=== PATIENT | male | born 1945 | race Caucasian/White ===

== ENCOUNTER 2020-09-21 17:21 | Inpatient (IN) | payer MEDICARE, OTHER ==
[~2020-09-21] VITALS: Ht 170.2 cm; Wt 101.2 kg
[~2020-09-21 17:21] MED LIST: lisinopril PO
[2020-09-21 17:54] LABS: ABG BASE EXCESS -1.2 mmol/L (-2.0-3.0); ABG HCO3 21.5 mmol/L (21.0-28.0); ABG OXYGEN SATURATION 94.2 % (95.0-99.0); ABG PCO2 31 mmHg (35-48)
[2020-09-21 18:20] LABS: BASOPHILS % (AUTO) 0.4 % (0.0-5.0); EOSINOPHILS % (AUTO) 0.1 % (0.0-8.0); HEMATOCRIT 49.6 % (42-54); LYMPHOCYTES % (AUTO) 13.7 % (21.0-51.0); MEAN CORPUSCULAR HEMOGLOBIN 32.6 pg (27.0-33.0); MEAN CORPUSCULAR HGB CONC 34.3 g/dL (32.0-36.0); MONOCYTES % (AUTO) 13.5 % (3.0-13.0); NEUTROPHILS % (AUTO) 71.9 % (40.0-77.0); PLATELET COUNT (AUTO) 292 K/uL (130-400); RED BLOOD CELL COUNT(AUTO) 5.22 MIL/uL (4.50-6.20); WHITE BLOOD COUNT (AUTO) 6.8 K/uL (4.8-10.8)
[2020-09-21] MEDS ORDERED: ALBUTEROL INHALER 90MCG/INH IH ONE (18:25)
[2020-09-21] MEDS ORDERED: ASPIRIN 325 MG TABLET ONE (18:26)
[2020-09-21] MEDS ORDERED: CEFTRIAXONE 1G VIAL ONE (18:26)
[2020-09-21] MEDS ORDERED: DEXAMETHASONE SOD PHOSPHATE 10MG/ML 1ML VIAL ONE (18:26)
[2020-09-21] MEDS ORDERED: AZITHROMYCIN 250 MG TABLET PO ONE (18:27)
[2020-09-21 18:33] LABS: INR 1.05 (0.85-1.15); PROTHROMBIN TIME 11.2 SEC (9.6-11.6)
[2020-09-21 18:35] LABS: PARTIAL THROMBOPLASTIN TIME 32.4 SEC (26.3-35.5)
[2020-09-21 18:42] LABS: POTASSIUM 4.2 mmol/L (3.5-5.1)
[2020-09-21 18:46] LABS: ALBUMIN 3.4 g/dL (3.5-5.0); BILIRUBIN,TOTAL 0.5 mg/dL (0.2-1.0); TOTAL PROTEIN, SERUM 7.2 g/dL (6.0-8.3)
[2020-09-21 18:48] LABS: B-TYPE NATRIURETIC PEPTIDE 7 pg/mL (0-100)
[2020-09-21] MEDS ORDERED: ERGOCALCIFEROL (VITAMIN D2) 50,000 UNIT CAPSULE PO ONE (20:15)
[2020-09-21] MEDS ORDERED: LACTULOSE 20 GM/30 ML UDCUP PO PRN (20:15)
[2020-09-21] MEDS ORDERED: ALBUTEROL INHALER 90MCG/INH IH PRN (20:15)
[2020-09-21] MEDS: DEXAMETHASONE SOD PHOSPHATE 4 MG/ML 1ML VIAL IVP SCH (20:15)
[2020-09-21] MEDS ORDERED: ONDANSETRON 4MG INJ IV PRN (20:15)
[2020-09-21] MEDS ORDERED: ACETAMINOPHEN 325 MG TAB PO PRN (20:15)
[2020-09-21] MEDS: AZITHROMYCIN 500MG+NS 250ML 250 ML IV SCH (20:15)
[2020-09-21] MEDS: CEFTRIAXONE 1G VIAL IVP SCH (20:15)
[2020-09-21] MEDS ORDERED: GUAIFENESIN-CODEINE 5 ML SYRUP PO PRN (20:30)
[2020-09-21] MEDS ORDERED: DEXTROSE 50%-WATER 50 ML DISP.SYRIN IV PRN (20:30)
[2020-09-21] MEDS ORDERED: GLUCAGON 1MG KIT 1 MG ML IM PRN (20:30)
[2020-09-21] MEDS: FAMOTIDINE 20MG TAB PO SCH (21:00)
[2020-09-21] MEDS: INSULIN HUMULIN R 100 UNIT/ML 3ML SQ SCH (21:00)
[2020-09-21 21:25] LABS: CRP QUANTITATIVE 105.8 mg/L (0.00-9.0)
[2020-09-21] MEDS ORDERED: ERGOCALCIFEROL (VITAMIN D2) 50,000 UNIT CAPSULE ONE (23:16)
[2020-09-21] MEDS ORDERED: FAMOTIDINE 20MG TAB ONE (23:16)
[2020-09-22] MEDS ORDERED: IOHEXOL 350 MG/ML 100ML INFUS..BTL IV ONE (00:25)
[2020-09-22 05:41] LABS: BASOPHILS % (AUTO) 0.2 % (0.0-5.0); HEMATOCRIT 50.4 % (42-54); LYMPHOCYTES % (AUTO) 16.7 % (21.0-51.0); MEAN CORPUSCULAR HEMOGLOBIN 32.1 pg (27.0-33.0); MEAN CORPUSCULAR HGB CONC 33.5 g/dL (32.0-36.0); MEAN CORPUSCULAR VOLUME 95.6 fL (79-99); NEUTROPHILS % (AUTO) 73.9 % (40.0-77.0); PLATELET COUNT (AUTO) 324 K/uL (130-400); RED BLOOD CELL COUNT(AUTO) 5.27 MIL/uL (4.50-6.20); RED CELL DISTRIBUTION WIDTH 13.1 % (11.0-15.5); WHITE BLOOD COUNT (AUTO) 4.7 K/uL (4.8-10.8)
[2020-09-22 05:46] LABS: POTASSIUM 4.9 mmol/L (3.5-5.1)
[2020-09-22] MEDS: INSULIN HUMULIN R 100 UNIT/ML 3ML SQ SCH ×4 (07:30→21:00)
[2020-09-22] MEDS ORDERED: FAMOTIDINE 20MG TAB ONE ×2 (08:08→20:56)
[2020-09-22] MEDS ORDERED: ASCORBIC ACID 500 MG TAB ONE (08:08)
[2020-09-22] MEDS ORDERED: DEXAMETHASONE SOD PHOSPHATE 10MG/ML 1ML VIAL ONE (08:08)
[2020-09-22] MEDS ORDERED: ENOXAPARIN SODIUM 40 MG/0.4 ML SYRINGE SQ ONE (08:09)
[2020-09-22] MEDS ORDERED: ZINC SULFATE 220 CAPSULE ONE (08:09)
[2020-09-22] MEDS: CEFTRIAXONE 1G VIAL IVP SCH ×2 (08:15→20:15)
[2020-09-22] MEDS: ZINC SULFATE 220 CAPSULE PO SCH (09:00)
[2020-09-22] MEDS: FAMOTIDINE 20MG TAB PO SCH ×2 (09:00→21:00)
[2020-09-22] MEDS ORDERED: ENOXAPARIN SODIUM 40 MG/0.4 ML SYRINGE SQ SCH (09:00)
[2020-09-22] MEDS: ASCORBIC ACID 500 MG TAB PO SCH (09:00)
[2020-09-22] MEDS ORDERED: GUAIFENESIN-CODEINE 5 ML SYRUP ONE (12:38)
[2020-09-22] MEDS ORDERED: AZITHROMYCIN 500MG+NS 250ML 250 ML IV ONE (17:05)
[2020-09-22] MEDS ORDERED: CEFTRIAXONE 1G VIAL ONE (17:05)
[2020-09-22] MEDS ORDERED: 0.9%NACL 50ML 50 ML IV ONE (17:06)
[2020-09-22] MEDS: AZITHROMYCIN 500MG+NS 250ML 250 ML IV SCH (20:15)
[2020-09-22] MEDS: DEXAMETHASONE SOD PHOSPHATE 4 MG/ML 1ML VIAL IVP SCH (20:15)
[2020-09-22] MEDS ORDERED: ACETAMINOPHEN 325 MG TAB ONE (22:26)
[2020-09-23 05:21] LABS: BASOPHILS % (AUTO) 0.1 % (0.0-5.0); HEMATOCRIT 50.3 % (42-54); LYMPHOCYTES % (AUTO) 8.8 % (21.0-51.0); MEAN CORPUSCULAR HGB CONC 33.4 g/dL (32.0-36.0); MEAN CORPUSCULAR VOLUME 95.8 fL (79-99); MONOCYTES % (AUTO) 8.7 % (3.0-13.0); NEUTROPHILS % (AUTO) 81.8 % (40.0-77.0); PLATELET COUNT (AUTO) 349 K/uL (130-400); RED BLOOD CELL COUNT(AUTO) 5.25 MIL/uL (4.50-6.20); WHITE BLOOD COUNT (AUTO) 14.3 K/uL (4.8-10.8)
[2020-09-23 05:47] LABS: ALBUMIN 2.9 g/dL (3.5-5.0); BILIRUBIN,TOTAL 0.4 mg/dL (0.2-1.0); CREATININE 0.9 mg/dL (0.5-1.5); POTASSIUM 4.1 mmol/L (3.5-5.1); TOTAL PROTEIN, SERUM 7.2 g/dL (6.0-8.3)
[2020-09-23] MEDS: INSULIN HUMULIN R 100 UNIT/ML 3ML SQ SCH ×4 (07:30→21:00)
[2020-09-23] MEDS: CEFTRIAXONE 1G VIAL IVP SCH ×2 (08:15→20:15)
[2020-09-23] MEDS ORDERED: ASCORBIC ACID 500 MG TAB ONE (08:49)
[2020-09-23] MEDS ORDERED: FAMOTIDINE 20MG TAB ONE ×2 (08:50→20:16)
[2020-09-23] MEDS ORDERED: ZINC SULFATE 220 CAPSULE ONE (08:50)
[2020-09-23] MEDS ORDERED: ENOXAPARIN SODIUM 40 MG/0.4 ML SYRINGE SQ ONE ×2 (08:51→20:16)
[2020-09-23] MEDS ORDERED: ACETAMINOPHEN 325 MG TAB ONE ×2 (08:51→18:21)
[2020-09-23] MEDS ORDERED: CEFTRIAXONE 1G VIAL ONE ×2 (08:52→20:17)
[2020-09-23] MEDS: FAMOTIDINE 20MG TAB PO SCH ×2 (09:00→21:00)
[2020-09-23] MEDS: ZINC SULFATE 220 CAPSULE PO SCH (09:00)
[2020-09-23] MEDS: ASCORBIC ACID 500 MG TAB PO SCH (09:00)
[2020-09-23] MEDS ORDERED: ONDANSETRON 4MG INJ ONE (18:03)
[2020-09-23] MEDS ORDERED: PHARMACY COMMUNICATION**REMDESIVIR ORDER MISC SCH (18:15)
[2020-09-23] MEDS ORDERED: GUAIFENESIN-CODEINE 5 ML SYRUP ONE (19:24)
[2020-09-23] MEDS ORDERED: AZITHROMYCIN 500MG+NS 250ML 250 ML IV ONE (20:13)
[2020-09-23] MEDS: AZITHROMYCIN 500MG+NS 250ML 250 ML IV SCH (20:15)
[2020-09-23] MEDS ORDERED: DEXAMETHASONE SOD PHOSPHATE 10MG/ML 1ML VIAL ONE (20:15)
[2020-09-23] MEDS: DEXAMETHASONE SOD PHOSPHATE 4 MG/ML 1ML VIAL IVP SCH (20:15)
[2020-09-23] MEDS: ENOXAPARIN SODIUM 60 MG/0.6 ML SQ SCH (21:00)
[2020-09-23 21:44] VITALS: BP 138/67
[2020-09-23] MEDS ORDERED: 0.9% NACL 250ML 250 ML IV ONE (23:34)
[2020-09-24] VITALS (7 sets, daily range): BP systolic 109–149; BP diastolic 53–81
[2020-09-24] MEDS ORDERED: simvastatin (01:33)
[2020-09-24] MEDS ORDERED: metformin (01:33)
[2020-09-24 04:53] LABS: BASOPHILS % (AUTO) 0.2 % (0.0-5.0); HEMATOCRIT 49.7 % (42-54); LYMPHOCYTES % (AUTO) 5.7 % (21.0-51.0); MEAN CORPUSCULAR HEMOGLOBIN 31.7 pg (27.0-33.0); MEAN CORPUSCULAR HGB CONC 33.6 g/dL (32.0-36.0); MEAN CORPUSCULAR VOLUME 94.3 fL (79-99); MONOCYTES % (AUTO) 6.3 % (3.0-13.0); NEUTROPHILS % (AUTO) 86.7 % (40.0-77.0); PLATELET COUNT (AUTO) 349 K/uL (130-400); RED BLOOD CELL COUNT(AUTO) 5.27 MIL/uL (4.50-6.20); RED CELL DISTRIBUTION WIDTH 13.1 % (11.0-15.5); WHITE BLOOD COUNT (AUTO) 13.1 K/uL (4.8-10.8)
[2020-09-24 05:21] LABS: BILIRUBIN,TOTAL 0.8 mg/dL (0.2-1.0); CREATININE 0.9 mg/dL (0.5-1.5); CRP QUANTITATIVE 144.4 mg/L (0.00-9.0); POTASSIUM 4.3 mmol/L (3.5-5.1); TOTAL PROTEIN, SERUM 7.7 g/dL (6.0-8.3)
[2020-09-24] MEDS: INSULIN HUMULIN R 100 UNIT/ML 3ML SQ SCH ×4 (07:30→21:00)
[2020-09-24] MEDS: CEFTRIAXONE 1G VIAL IVP SCH ×2 (08:17→22:21)
[2020-09-24] MEDS: FAMOTIDINE 20MG TAB PO SCH ×2 (08:17→22:19)
[2020-09-24] MEDS: ASCORBIC ACID 500 MG TAB PO SCH (08:18)
[2020-09-24] MEDS: ACETAMINOPHEN 325 MG TAB PO PRN ×3 (08:18→22:24)
[2020-09-24] MEDS: ZINC SULFATE 220 CAPSULE PO SCH (08:19)
[2020-09-24] MEDS: ENOXAPARIN SODIUM 60 MG/0.6 ML SQ SCH ×2 (08:25→22:20)
[2020-09-24] MEDS ORDERED: PHARMACY COMMUNICATION MISC SCH (11:45)
[2020-09-24] MEDS ORDERED: COMPOUND IV REFRIGERATED 1 EACH IVSOLN MISC PRN (15:00)
[2020-09-24] MEDS ORDERED: REMDESIVIR (EUA) 520 200 MG in 0.9% NACL 250ML 250 ML IV ONE (15:00)
[2020-09-24] MEDS: DEXAMETHASONE SOD PHOSPHATE 4 MG/ML 1ML VIAL IVP SCH (22:19)
[2020-09-24] MEDS: AZITHROMYCIN 500MG+NS 250ML 250 ML IV SCH (22:21)
[2020-09-25 03:43] VITALS: BP 113/63
[2020-09-25 05:32] LABS: BASOPHILS % (AUTO) 0.2 % (0.0-5.0); HEMATOCRIT 49.3 % (42-54); LYMPHOCYTES % (AUTO) 3.5 % (21.0-51.0); MEAN CORPUSCULAR HEMOGLOBIN 32.2 pg (27.0-33.0); MEAN CORPUSCULAR HGB CONC 33.7 g/dL (32.0-36.0); MEAN CORPUSCULAR VOLUME 95.5 fL (79-99); MONOCYTES % (AUTO) 3.6 % (3.0-13.0); NEUTROPHILS % (AUTO) 91.8 % (40.0-77.0); PLATELET COUNT (AUTO) 277 K/uL (130-400); RED BLOOD CELL COUNT(AUTO) 5.16 MIL/uL (4.50-6.20); RED CELL DISTRIBUTION WIDTH 13.2 % (11.0-15.5)
[2020-09-25 05:51] LABS: ALBUMIN 2.6 g/dL (3.5-5.0); BILIRUBIN,DIRECT 0.3 mg/dL (0.0-0.3); BILIRUBIN,TOTAL 0.9 mg/dL (0.2-1.0); POTASSIUM 4.6 mmol/L (3.5-5.1); TOTAL PROTEIN, SERUM 7.2 g/dL (6.0-8.3)
[2020-09-25] MEDS: INSULIN HUMULIN R 100 UNIT/ML 3ML SQ SCH ×4 (06:01→21:00)
[2020-09-25 06:02] LABS: CRP QUANTITATIVE 379.5 mg/L (0.00-9.0)
[2020-09-25] MEDS: PHARMACY COMMUNICATION MISC SCH (07:40)
[2020-09-25 08:43] VITALS: BP 111/59
[2020-09-25] MEDS: ENOXAPARIN SODIUM 60 MG/0.6 ML SQ SCH ×2 (08:50→22:08)
[2020-09-25] MEDS: ZINC SULFATE 220 CAPSULE PO SCH (08:50)
[2020-09-25] MEDS: ASCORBIC ACID 500 MG TAB PO SCH (08:50)
[2020-09-25] MEDS: CEFTRIAXONE 1G VIAL IVP SCH (08:51)
[2020-09-25] MEDS: FAMOTIDINE 20MG TAB PO SCH ×2 (08:51→22:07)
[2020-09-25 12:00] VITALS: BP 129/85
[2020-09-25] MEDS: REMDESIVIR (EUA) 520 100 MG in 0.9% NACL 250ML 250 ML IV SCH (15:06)
[2020-09-25 16:00] VITALS: BP 122/69
[2020-09-25 20:41] VITALS: BP 149/80
[2020-09-25] MEDS: DEXAMETHASONE SOD PHOSPHATE 4 MG/ML 1ML VIAL IVP SCH (22:06)
[2020-09-26] VITALS (7 sets, daily range): BP systolic 125–146; BP diastolic 46–85
[2020-09-26 04:38] LABS: ABG BASE EXCESS 1.2 mmol/L (-2.0-3.0); ABG HCO3 24.5 mmol/L (21.0-28.0); ABG PCO2 35 mmHg (35-48)
[2020-09-26] MEDS: PHARMACY COMMUNICATION MISC SCH (06:00)
[2020-09-26 06:01] LABS: BASOPHILS % (AUTO) 0.2 % (0.0-5.0); HEMATOCRIT 48.7 % (42-54); LYMPHOCYTES % (AUTO) 5.8 % (21.0-51.0); MEAN CORPUSCULAR HEMOGLOBIN 32.8 pg (27.0-33.0); MEAN CORPUSCULAR HGB CONC 34.9 g/dL (32.0-36.0); MEAN CORPUSCULAR VOLUME 93.8 fL (79-99); MONOCYTES % (AUTO) 5.2 % (3.0-13.0); NEUTROPHILS % (AUTO) 87.8 % (40.0-77.0); PLATELET COUNT (AUTO) 410 K/uL (130-400); RED BLOOD CELL COUNT(AUTO) 5.19 MIL/uL (4.50-6.20); RED CELL DISTRIBUTION WIDTH 13.2 % (11.0-15.5); WHITE BLOOD COUNT (AUTO) 12.6 K/uL (4.8-10.8)
[2020-09-26 06:31] LABS: ALBUMIN 2.7 g/dL (3.5-5.0); BILIRUBIN,DIRECT 0.2 mg/dL (0.0-0.3); BILIRUBIN,TOTAL 0.8 mg/dL (0.2-1.0); POTASSIUM 4.5 mmol/L (3.5-5.1); TOTAL PROTEIN, SERUM 7.5 g/dL (6.0-8.3)
[2020-09-26 06:39] LABS: CRP QUANTITATIVE 218.9 mg/L (0.00-9.0)
[2020-09-26] MEDS: INSULIN HUMULIN R 100 UNIT/ML 3ML SQ SCH ×4 (06:44→21:00)
[2020-09-26 06:47] LABS: CREATININE 0.9 mg/dL (0.5-1.5)
[2020-09-26] MEDS: ZINC SULFATE 220 CAPSULE PO SCH (09:03)
[2020-09-26] MEDS: ASCORBIC ACID 500 MG TAB PO SCH (09:03)
[2020-09-26] MEDS: ACETAMINOPHEN 325 MG TAB PO PRN ×3 (09:05→10:02)
[2020-09-26] MEDS: FAMOTIDINE 20MG TAB PO SCH ×2 (10:01→22:07)
[2020-09-26] MEDS: ENOXAPARIN SODIUM 100 MG/1 ML SQ SCH ×2 (10:01→22:08)
[2020-09-26] MEDS: REMDESIVIR (EUA) 520 100 MG in 0.9% NACL 250ML 250 ML IV SCH (15:03)
[2020-09-26] MEDS: DEXAMETHASONE SOD PHOSPHATE 4 MG/ML 1ML VIAL IVP SCH (22:06)
[2020-09-26] MEDS: HYDROXYZINE 25 MG TABLET PO SCH (22:07)
[2020-09-27 03:10] LABS: ABG BASE EXCESS 0.6 mmol/L (-2.0-3.0); ABG OXYGEN SATURATION 89.8 % (95.0-99.0); ABG PCO2 35 mmHg (35-48)
[2020-09-27 03:48] VITALS: BP 142/77
[2020-09-27 06:06] LABS: BASOPHILS % (AUTO) 0.3 % (0.0-5.0); LYMPHOCYTES % (AUTO) 6.8 % (21.0-51.0); MEAN CORPUSCULAR HEMOGLOBIN 32.2 pg (27.0-33.0); MEAN CORPUSCULAR HGB CONC 33.7 g/dL (32.0-36.0); MEAN CORPUSCULAR VOLUME 95.5 fL (79-99); MONOCYTES % (AUTO) 6.6 % (3.0-13.0); NEUTROPHILS % (AUTO) 84.9 % (40.0-77.0); PLATELET COUNT (AUTO) 440 K/uL (130-400); RED BLOOD CELL COUNT(AUTO) 5.13 MIL/uL (4.50-6.20); RED CELL DISTRIBUTION WIDTH 13.4 % (11.0-15.5); WHITE BLOOD COUNT (AUTO) 11.7 K/uL (4.8-10.8)
[2020-09-27 06:32] LABS: ALBUMIN 2.5 g/dL (3.5-5.0); B-TYPE NATRIURETIC PEPTIDE 54 pg/mL (0-100); BILIRUBIN,DIRECT 0.3 mg/dL (0.0-0.3); BILIRUBIN,TOTAL 1.1 mg/dL (0.2-1.0); CRP QUANTITATIVE 95.4 mg/L (0.00-9.0); POTASSIUM 4.6 mmol/L (3.5-5.1)
[2020-09-27] MEDS: INSULIN HUMULIN R 100 UNIT/ML 3ML SQ SCH ×4 (06:45→20:42)
[2020-09-27 08:27] VITALS: BP 109/52
[2020-09-27] MEDS: FAMOTIDINE 20MG TAB PO SCH ×2 (10:01→20:56)
[2020-09-27] MEDS: ZINC SULFATE 220 CAPSULE PO SCH (10:01)
[2020-09-27] MEDS: ASCORBIC ACID 500 MG TAB PO SCH (10:01)
[2020-09-27] MEDS: ENOXAPARIN SODIUM 100 MG/1 ML SQ SCH ×2 (10:03→20:57)
[2020-09-27 12:16] VITALS: BP 151/76
[2020-09-27] MEDS: REMDESIVIR (EUA) 520 100 MG in 0.9% NACL 250ML 250 ML IV SCH (14:46)
[2020-09-27 16:26] VITALS: BP 130/71
[2020-09-27 19:00] VITALS: BP 124/76
[2020-09-27] MEDS: HYDROXYZINE 25 MG TABLET PO SCH (20:56)
[2020-09-27] MEDS: DEXAMETHASONE SOD PHOSPHATE 4 MG/ML 1ML VIAL IVP SCH (20:57)
[2020-09-27] MEDS: TEMAZEPAM 7.5 MG CAPSULE PO PRN (21:13)
[2020-09-27 23:00] VITALS: BP 107/70
[2020-09-28 03:00] VITALS: BP 118/76
[2020-09-28 04:54] LABS: ALBUMIN 2.8 g/dL (3.5-5.0); BILIRUBIN,DIRECT 0.4 mg/dL (0.0-0.3); BILIRUBIN,TOTAL 1.4 mg/dL (0.2-1.0); CREATININE 0.9 mg/dL (0.5-1.5); CRP QUANTITATIVE 53.5 mg/L (0.00-9.0); POTASSIUM 4.6 mmol/L (3.5-5.1); TOTAL PROTEIN, SERUM 7.2 g/dL (6.0-8.3)
[2020-09-28 04:55] LABS: BASOPHILS % (AUTO) 0.2 % (0.0-5.0); HEMATOCRIT 48.1 % (42-54); LYMPHOCYTES % (AUTO) 8.8 % (21.0-51.0); MEAN CORPUSCULAR HGB CONC 33.9 g/dL (32.0-36.0); MEAN CORPUSCULAR VOLUME 94.5 fL (79-99); MONOCYTES % (AUTO) 6.8 % (3.0-13.0); NEUTROPHILS % (AUTO) 83.2 % (40.0-77.0); PLATELET COUNT (AUTO) 463 K/uL (130-400); RED BLOOD CELL COUNT(AUTO) 5.09 MIL/uL (4.50-6.20); RED CELL DISTRIBUTION WIDTH 13.2 % (11.0-15.5); WHITE BLOOD COUNT (AUTO) 12.5 K/uL (4.8-10.8)
[2020-09-28 05:21] LABS: HEMOGLOBIN A1C 6.3 % (4.0-6.0)
[2020-09-28] MEDS: INSULIN HUMULIN R 100 UNIT/ML 3ML SQ SCH ×4 (07:30→21:00)
[2020-09-28] MEDS: ZINC SULFATE 220 CAPSULE PO SCH (08:25)
[2020-09-28] MEDS: FAMOTIDINE 20MG TAB PO SCH ×2 (08:26→21:34)
[2020-09-28] MEDS: ASCORBIC ACID 500 MG TAB PO SCH (08:26)
[2020-09-28] MEDS: ENOXAPARIN SODIUM 100 MG/1 ML SQ SCH (08:27)
[2020-09-28 08:45] VITALS: BP 135/75
[2020-09-28] MEDS: ENOXAPARIN SODIUM 60 MG/0.6 ML SQ SCH ×2 (12:08→21:35)
[2020-09-28 12:10] VITALS: BP 145/83
[2020-09-28] MEDS: REMDESIVIR (EUA) 520 100 MG in 0.9% NACL 250ML 250 ML IV SCH (15:41)
[2020-09-28 16:38] VITALS: BP 121/66
[2020-09-28 20:24] VITALS: BP 131/70
[2020-09-28] MEDS: DEXAMETHASONE SOD PHOSPHATE 4 MG/ML 1ML VIAL IVP SCH (21:34)
[2020-09-28] MEDS: HYDROXYZINE 25 MG TABLET PO SCH (21:34)
[2020-09-28] MEDS: TEMAZEPAM 7.5 MG CAPSULE PO PRN (21:41)
[2020-09-29 00:24] VITALS: BP 110/72
[2020-09-29 04:24] VITALS: BP 105/63
[2020-09-29 06:37] LABS: ALBUMIN 2.6 g/dL (3.5-5.0); BILIRUBIN,DIRECT 0.4 mg/dL (0.0-0.3); BILIRUBIN,TOTAL 1.4 mg/dL (0.2-1.0); TOTAL PROTEIN, SERUM 6.9 g/dL (6.0-8.3)
[2020-09-29] MEDS: INSULIN HUMULIN R 100 UNIT/ML 3ML SQ SCH ×3 (07:15→16:30)
[2020-09-29 07:59] VITALS: BP 104/64
[2020-09-29] MEDS: ASCORBIC ACID 500 MG TAB PO SCH (08:57)
[2020-09-29] MEDS: FAMOTIDINE 20MG TAB PO SCH (08:57)
[2020-09-29] MEDS: ZINC SULFATE 220 CAPSULE PO SCH (08:57)
[2020-09-29] MEDS: ENOXAPARIN SODIUM 60 MG/0.6 ML SQ SCH (08:58)
[2020-09-29 11:48] VITALS: BP 124/64
[2020-09-29 16:14] VITALS: BP 119/65
== END 2020-09-29 19:00 | DRG 177 ==
LOC: EDH 17:21 → EDHIP 20:01 → 2DH 09-23 21:38
PROVIDERS: ADMIT Family Medicine; ATTEND Family Medicine
PROC: XW13325 Transfusion of Convalescent Plasma (Nonautologous) into Peripheral Vein, Percutaneous Approach, New Technology Group 5 (ICD-10-PCS; principal; 2020-09-23)
PROC: XW033E5 Introduction of Remdesivir Anti-infective into Peripheral Vein, Percutaneous Approach, New Technology Group 5 (ICD-10-PCS; 2020-09-24)
DX: U07.1 COVID-19 (principal); J96.01 Acute respiratory failure with hypoxia; J12.82 Pneumonia due to coronavirus disease 2019; E44.0 Moderate protein-calorie malnutrition; E11.9 Type 2 diabetes mellitus without complications; I10 Essential (primary) hypertension; R53.81 Other malaise; E78.5 Hyperlipidemia, unspecified; Z83.3 Family history of diabetes mellitus; Z82.5 Family history of asthma and other chronic lower respiratory diseases; Z82.49 Family history of ischemic heart disease and other diseases of the circulatory system; Z80.3 Family history of malignant neoplasm of breast; Z82.0 Family history of epilepsy and other diseases of the nervous system; Z82.3 Family history of stroke; Z90.81 Acquired absence of spleen; Z68.35 Body mass index [BMI] 35.0-35.9, adult
CPT/HCPCS: 36415; 36600; 71045; 71275; 80048; 80053; 80076; 82248; 82550; 82728; 82803; 82948; 83036; 83615; 83880; 84145; 84484; 85025; 85378; 85610; 85730; 86140; 86850; 86900; 86901; 86927; 87040; 87426; 87804; 87880; 93005; 97039; 99291; G0378; J0456; J0696; J1100; J1650; J1815; J2405; J7050; Q9967